=== PATIENT | female | born 1995 | race Two or more races ===

== ENCOUNTER 2020-05-01 19:05 | Emergency (ER) | payer OTHER ==
[~2020-05-01] VITALS: Ht 160 cm; Wt 114.3 kg
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
--- NOTE | 2020-05-01 19:28 | NUR ---
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
--- NOTE | 2020-05-01 19:28 | NUR ---
B MANISHA, PAC AT THE BEDSIDE EVALUATING THE PT.
--- NOTE | 2020-05-01 19:30 | NUR ---
ICE PACK APPLIED TO RT HAND
--- NOTE | 2020-05-01 19:37 | NUR ---
XRAY IN PROGRESS AT THE BEDSIDE.
[2020-05-01 20:06] VITALS: BP 125/81
== END 2020-05-01 20:07 | disposition home or self-care (01) ==
LOC: ER 19:10
DX: S62.316A Displaced fracture of base of fifth metacarpal bone, right hand, initial encounter for closed fracture (principal); F17.200 Nicotine dependence, unspecified, uncomplicated; Z98.890 Other specified postprocedural states; W22.01XA Walked into wall, initial encounter; Y93.89 Activity, other specified; Y92.89 Other specified places as the place of occurrence of the external cause; Y99.8 Other external cause status
CPT/HCPCS: 73130-TC